=== PATIENT | female | born 1975 | race Caucasian/White ===

== ENCOUNTER 2019-06-14 16:08 | Emergency (ER) | payer OTHER ==
[2019-06-14 16:56] LABS: Protime INR 1.05
[2019-06-14 16:58] LABS: Absolute Lymphocytes (CBC) 1.8 K/uL (0.7-4.9); Basophils % 0.9 % (0-1.3); Hematocrit 38.5 % (36.0-45.0); Lymphocytes % 30.9 % (15.3-44.8); MPV 9.6 fL (7.6-11.3); RBC Red Blood Cell Count 4.18 M/uL (3.86-4.86)
[2019-06-14 17:02] LABS: Urine Blood NEGATIVE (NEG); Urine Glucose NEGATIVE (NEG); Urine Protein NEGATIVE (NEG); Urine Specific Gravity <1.005 (1.005-1.030); Urine pH 6.5 (5.0-7.0)
--- NOTE | 2019-06-14 17:07 | RAD REPORT ---
EXAM DESCRIPTION: RAD - Chest Single View - 06/14/2019 4:47 pm CLINICAL HISTORY: Cough, chest pain COMPARISON: None. TECHNIQUE: AP portable chest image was obtained 1638 hours . FINDINGS: Lungs are clear. Heart and vasculature are normal. No measurable pleural effusion and no p neumothorax. No acute bony abnormality seen. No acute aortic findings suspected. IMPRESSION: No acute cardiopulmonary process.
[2019-06-14 17:12] LABS: ALT/SGPT 23 U/L (12-78); AST/SGOT 14 U/L (15-37); Albumin 4.1 g/dL (3.4-5.0); Alkaline Phosphatase 61 U/L (45-117); BUN Blood Urea Nitrogen 10 mg/dL (7-18); Bicarbonate 28 mmol/L (21-32); Bilirubin Direct < 0.1 mg/dL (0-0.2); Bilirubin Total 0.3 mg/dL (0.2-1.0); Glucose Level 93 mg/dL (74-106); Magnesium 2.4 mg/dL (1.8-2.4); NT PRO-BNP 114 pg/mL (<125); Potassium 3.6 mmol/L (3.5-5.1); Protein, Total 7.4 g/dL (6.4-8.2); Sodium Level 141 mmol/L (136-145); Troponin (Emerg Dept Use Only) < 0.02 ng/mL (0.0-0.045)
[2019-06-14] MEDS ORDERED: ASPIRIN 81 MG CHEWABLE TABLET ONE (17:27)
--- NOTE | 2019-06-14 18:58 | ER ---
Nurse's Notes [facility] Name: Shae Martinez Age: 44 yrs Sex: Female : 1975 Arrival Date: 06/14/2019 Time: 16:12 Bed 26 Private MD: Diagnosis: Chest pain, unspecified;Essential (primary) hypertension Presentation: 06/14 16:15 Presenting complaint: Patient states: intermittent chest pain that began 1-2 weeks ago. aa5 Pt denies cough, denies SOB, denies nausea/vomiting. Transition of care: patient was not received from another setting of care. Onset of symptoms was May 2019. Risk Assessment: Do you want to hurt yourself or someone else? Patient reports no desire to harm self or others. Initial Sepsis Screen: Does the patient meet any 2 criteria? No. Patient's initial sepsis screen is negative. Does the patient have a suspected source of infection? No. Patient's initial sepsis screen is negative. Care prior to arrival: None. 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 - Social history:: Smoking status: Patient/guardian denies using tobacco. - Ebola Screening: : No symptoms or risks identified at this time. - Family history:: not pertinent. Screenin:26 Abuse screen: Denies threats or abuse. Denies injuries from another. Nutritional rv screening: No deficits noted. Tuberculosis screening: No symptoms or risk factors identified. Fall Risk None identified. Assessment: 16:25 General: Appears in no apparent distress. comfortable, Behavior is calm, cooperative. rv Pain: Complains of pain in chest Pain does not radiate. Pain began suddenly, 2 wks ago. Neuro: Level of Consciousness is awake, alert, obeys commands, Oriented to person, place, time, situation. Cardiovascular: Patient's skin is warm and dry. Rhythm is regular. Respiratory: Airway is patent. GI: No signs and/or symptoms were reported involving the gastrointestinal system. : No signs and/or symptoms were reported regarding the genitourinary system. EENT: No signs and/or symptoms were reported regarding the EENT system. Derm: Skin is intact. Vital Signs: 16:16 BP 138 / 92; Pulse 91; Resp 16 S; Temp 98.7(TE); Pulse Ox 97% on R/A; Weight 63.96 kg aa5 (R); Height 5 ft. 3 in. (160.02 cm) (R); Pain 2/10; 17:00 BP 128 / 80; Pulse 66; Resp 15; Pulse Ox 97% on R/A; rv 17:45 BP 115 / 79; Pulse 70; Resp 16; Pulse Ox 97% on R/A; rv 18:30 BP 116 / 74; Pulse 67; Resp 16; Pulse Ox 98% on R/A; rv 16:16 Body Mass Index 24.98 (63.96 kg, 160.02 cm) aa5 ED Course: 16:12 Patient arrived in ED. mr 16:15 Arm band placed on. aa 16:16 Triage completed. aa5 16:18 Dennis Uriarte MD is Attending Physician. kandi 16:25 Parish Spears, GAVINO is Primary Nurse. rv 16:27 Patient has correct armband on for positive identification. Placed in gown. Bed in low rv position. Call light in reach. Side rails up X 1. Adult w/ patient. nurse practitioner home assessments on. Pulse ox on. NIBP on. 16:27 Patient maintains SpO2 saturation greater than 95% on room air. rv 16:29 EKG done, by central sterile tech. reviewed by Dennis Uriarte MD. 3 16:34 Initial lab(s) drawn, by fl, sent to lab. Inserted saline lock: 22 gauge in right lt1 antecubital area, using aseptic technique. 16:48 XRAY Chest (1 view) In Process Unspecified. EDMS 18:57 Jj Balderas MD is Referral Physician. kandi 19:12 No provider procedures requiring assistance completed. IV discontinued, intact, rv bleeding controlled, No redness/swelling at site. Pressure dressing applied. Administered Medications: 17:30 Drug: Aspirin 162 mg Route: PO; rv 19:13 Follow up: Response: No adverse reaction rv 19:15 Not Given (HR and BP are borderline low ): Lopressor 25 mg PO once rv Outcome: 18:57 Discharge ordered by . kandi 19:13 Discharged to home ambulatory. rv 19:13 Condition: good 19:13 Discharge instructions given to patient, Instructed on discharge instructions, follow up and referral plans. medication usage, Demonstrated understanding of instructions, follow-up care, medications, Prescriptions given X 1. 19:15 Patient left the ED. rv Signatures: Dispatcher [employer] EDDennis Garcia MD MD cha Rivera, Mary mr JairoAspen, RN RN [email or web address] Yajaira Flores 3 Parish Spears, RN RN rv Alexa Hoskins 1
--- NOTE | 2019-06-14 18:58 | EDPHYS ---
Physician Documentation [facility] Name: Shae Martinez Age: 44 yrs Sex: Female : 1975 Arrival Date: 06/14/2019 Time: 16:12 Bed 26 Private MD: ED Physician Dennis Uriarte HPI: 06/14 17:15 This 44 yrs old Female presents to ER via Ambulatory with complaints of Chest kadni Pain. 17:15 The patient or guardian reports chest pain that is located primarily in the substernal kandi area. Onset: 5 day(s) ago. The pain does not radiate. Associated signs and symptoms: The patient has no apparent associated signs or symptoms. The chest pain is described as a pressure. Modifying factors: The symptoms are alleviated by nothing. the symptoms are aggravated by nothing. Severity of pain: At its worst the pain was mild in the emergency department the pain is unchanged. The patient has not experienced similar symptoms in the past. 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 - Social history:: Smoking status: Patient/guardian denies using tobacco. - Ebola Screening: : No symptoms or risks identified at this time. - Family history:: not pertinent. ROS: 17:15 Constitutional: Negative for fever, chills, and weight loss, Eyes: Negative for injury, kandi pain, redness, and discharge, ENT: Negative for injury, pain, and discharge, Neck: Negative for injury, pain, and swelling, Respiratory: Negative for shortness of breath, cough, wheezing, and pleuritic chest pain, Abdomen/GI: Negative for abdominal pain, nausea, vomiting, diarrhea, and constipation, Back: Negative for injury and pain, : Negative for injury, bleeding, discharge, and swelling, MS/Extremity: Negative for injury and deformity, Skin: Negative for injury, rash, and discoloration, Neuro: Negative for headache, weakness, numbness, tingling, and seizure, Psych: Negative for depression, anxiety, suicide ideation, homicidal ideation, and hallucinations, Allergy/Immunology: Negative for hives, rash, and allergies, Endocrine: Negative for neck swelling, polydipsia, polyuria, polyphagia, and marked weight changes, Hematologic/Lymphatic: Negative for swollen nodes, abnormal bleeding, and unusual bruising. 17:15 Cardiovascular: Positive for chest pain, of the chest. Exam: 17:15 Constitutional: This is a well developed, well nourished patient who is awake, alert, kandi and in no acute distress. Head/Face: Normocephalic, atraumatic. Eyes: Pupils equal round and reactive to light, extra-ocular motions intact. Lids and lashes normal. Conjunctiva and sclera are non-icteric and not injected. Cornea within normal limits. Periorbital areas with no swelling, redness, or edema. ENT: Nares patent. No nasal discharge, no septal abnormalities noted. Tympanic membranes are normal and external auditory canals are clear. Oropharynx with no redness, swelling, or masses, exudates, or evidence of obstruction, uvula midline. Mucous membranes moist. Neck: Trachea midline, no thyromegaly or masses palpated, and no cervical lymphadenopathy. Supple, full range of motion without nuchal rigidity, or vertebral point tenderness. No Meningismus. Chest/axilla: Normal chest wall appearance and motion. Nontender with no deformity. No lesions are appreciated. Cardiovascular: Regular rate and rhythm with a normal S1 and S2. No gallops, murmurs, or rubs. Normal PMI, no JVD. No pulse deficits. Respiratory: Lungs have equal breath sounds bilaterally, clear to auscultation and percussion. No rales, rhonchi or wheezes noted. No increased work of breathing, no retractions or nasal flaring. Abdomen/GI: Soft, non-tender, with normal bowel sounds. No distension or tympany. No guarding or rebound. No evidence of tenderness throughout. Back: No spinal tenderness. No costovertebral tenderness. Full range of motion. Skin: Warm, dry with normal turgor. Normal color with no rashes, no lesions, and no evidence of cellulitis. MS/ Extremity: Pulses equal, no cyanosis. Neurovascular intact. Full, normal range of motion. Neuro: Awake and alert, GCS 15, oriented to person, place, time, and situation. Cranial nerves II-XII grossly intact. Motor strength 5/5 in all extremities. Sensory grossly intact. Cerebellar exam normal. Normal gait. Psych: Awake, alert, with orientation to person, place and time. Behavior, mood, and affect are within normal limits. 17:18 Musculoskeletal/extremity: DVT Exam: No signs of deep vein thrombosis. no pain, no kandi swelling, no tenderness, negative Homans' sign noted on exam, no appreciated bluish discoloration, no erythema, no increased warmth. Vital Signs: 16:16 BP 138 / 92; Pulse 91; Resp 16 S; Temp 98.7(TE); Pulse Ox 97% on R/A; Weight 63.96 kg aa5 (R); Height 5 ft. 3 in. (160.02 cm) (R); Pain 2/10; 17:00 BP 128 / 80; Pulse 66; Resp 15; Pulse Ox 97% on R/A; rv 17:45 BP 115 / 79; Pulse 70; Resp 16; Pulse Ox 97% on R/A; rv 18:30 BP 116 / 74; Pulse 67; Resp 16; Pulse Ox 98% on R/A; rv 16:16 Body Mass Index 24.98 (63.96 kg, 160.02 cm) aa5 MDM: 16:18 Patient medically screened. [facility] 17:17 Data reviewed: vital signs, nurses notes, lab test result(s), EKG, radiologic studies. [facility] 06/14 16:19 Order name: Basic Metabolic Panel; Complete Time: 17:14 [facility] 06/14 16:19 Order name: CBC with Diff; Complete Time: 17:12 [facility] 06/14 16:19 Order name: LFT's; Complete Time: 17:14 [facility] 06/14 16:19 Order name: Magnesium; Complete Time: 17:14 [facility] 06/14 16:19 Order name: NT PRO-BNP; Complete Time: 17:14 [facility] 06/14 16:19 Order name: PT-INR; Complete Time: 17:12 [facility] 06/14 16:19 Order name: Troponin (emerg Dept Use Only); Complete Time: 17:14 [facility] 06/14 16:19 Order name: XRAY Chest (1 view); Complete Time: 17:12 [facility] 06/14 16:19 Order name: EKG; Complete Time: 16:20 [facility] 06/14 16:49 Order name: Urine Dipstick--Ancillary (enter results); Complete Time: 17:12 06/14 17:12 Order name: D-Dimer; Complete Time: 18:17 [facility] 06/14 17:19 Order name: Troponin (emerg Dept Use Only); Complete Time: 18:57 [facility] 06/14 16:19 Order name: Cardiac monitoring; Complete Time: 16:29 [facility] 06/14 16:19 Order name: EKG - Nurse/Tech; Complete Time: 16:29 [facility] 06/14 16:19 Order name: IV Saline Lock; Complete Time: 16:29 [facility] 06/14 16:19 Order name: Labs collected and sent; Complete Time: 16:29 [facility] 06/14 16:19 Order name: O2 Per Protocol; Complete Time: 16:29 [facility] 06/14 16:19 Order name: O2 Sat Monitoring; Complete Time: 16:30 [facility] 06/14 16:19 Order name: Urine Dipstick-Ancillary (obtain specimen); Complete Time: 17:15 [facility] 06/14 17:19 Order name: Repeat Cardiac Enzymes at: 615PM; Complete Time: 19:15 [facility] Administered Medications: 17:30 Drug: Aspirin 162 mg Route: PO; rv 19:13 Follow up: Response: No adverse reaction rv 19:15 Not Given (HR and BP are borderline low ): Lopressor 25 mg PO once rv Disposition: 06/14/19 18:57 Discharged to Home. Impression: Chest pain, unspecified, Essential (primary) hypertension. - Condition is Stable. - Discharge Instructions: Nonspecific Chest Pain, Hypertension, Nonspecific Chest Pain, [id number], Hypertension, [id number], How to Take Your Blood Pressure, [id number]-[id number], Aspirin and Your Heart, Managing Your Hypertension. - Prescriptions for Toprol XL 25 mg Oral Tablet - take 1 tablet by ORAL route once daily; 20 tablet. - Medication Reconciliation Form, Thank You Letter, Antibiotic Education, Prescription Opioid Use form. - Follow up: Private Physician; When: 2 - 3 days; Reason: Recheck today's complaints, Continuance of care, Re-evaluation by your physician. Follow up: Jj Balderas; When: 2 - 3 days; Reason: Recheck today's complaints, Continuance of care, Re-evaluation by your physician. - Problem is new. - Symptoms have improved. Signatures: Dispatcher [employer] EDDennis Garcia MD MD cha Calderon, Audri, RN RN aa5 Parish Spears RN RN rv Corrections: (The following items were deleted from the chart) 19:15 18:57 06/14/2019 18:57 Discharged to Home. Impression: Chest pain, unspecified; rv Essential (primary) hypertension. Condition is Stable. Discharge Instructions: Nonspecific Chest Pain, Hypertension, Nonspecific Chest Pain, [id number], Hypertension, [id number], How to Take Your Blood Pressure, Qysz-[id number], Aspirin and Your Heart, Managing Your Hypertension. Prescriptions for Toprol XL 25 mg Oral Tablet - take 1 tablet by ORAL route once daily; 20 tablet. and Forms are Medication Reconciliation Form, Thank You Letter, Antibiotic Education, Prescription Opioid Use. Follow up: Private Physician; When: 2 - 3 days; Reason: Recheck today's complaints, Continuance of care, Re-evaluation by your physician. Follow up: Jj Balderas; When: 2 - 3 days; Reason: Recheck today's complaints, Continuance of care, Re-evaluation by your physician. Problem is new. Symptoms have improved. kandi
[2019-06-14 19:43] VITALS: TEMP 98.7
[2019-06-14 19:47] VITALS: BP 116/74; O2SAT 98
--- NOTE | 2019-06-15 09:59 | EKG ---
Test Date: 2019-06-14 Test Time: 16:25:35 Reporting Process Consultant: AGUSTÍN MEASUREMENT RESULTS: Intervals: Rate: 78 MO: 146 QRSD: 80 QT: 388 QTc: 442 Rueter: P: 54 MO: 146 QRS: 54 T: 61 INTERPRETIVE STATEMENTS: Normal sinus rhythm Cannot rule out Anterior infarct, age undetermined Abnormal ECG No previous ECG available for comparison Electronically Signed On 06-15-19 09:57:22 CDT by Jj Balderas
== END 2019-06-14 19:15 | disposition home or self-care (01) ==
LOC: ER 16:08
DX: I10 Essential (primary) hypertension (principal)
CPT/HCPCS: 36415; 71045; 80048; 80076; 81003; 83735; 83880; 84484; 85025; 85379; 85610; 93005; 99285